=== PATIENT | female | born 1985 | race Caucasian/White ===

== ENCOUNTER → 2016-11-06 | Outpatient (CLI) | payer BC, SELFPAY ==
[2016-11-06 16:11] LABS: CHLORIDE,CL 108 mmol/L (98-110); SODIUM,NA 139 mmol/L (136-146)
--- NOTE | 2016-11-06 16:56 | CT ---
CT of the abdomen and pelvis without contrast. HISTORY: Fever TECHNIQUE: Axial CT images were obtained of the abdomen and pelvis without contrast. Coronal and sag ittal reconstructions obtained. FINDINGS: The lung bases are clear, no pleural effusion. The liver, spleen, adrenal glands, and pancreas appear unremarkable for noncontrast examination. Cho lelithiasis with possible mild wall thickening. There is no bulky retroperitoneal lymphadenopathy. N o abdominal ascites. Small nonobstructing renal stones noted bilaterally. There is no evidence of obstructive uropathy. The large and small bowel are normal in caliber without evidence of obstruction. The appendix appear s normal. There is no bulky pelvic lymphadenopathy. There is a trace free pelvic fluid. No free air. The urinary bladder appears normal. The visualized osseous structures appear normal. IMPRESSION: 1. Cholelithiasis with borderline gallbladder wall thickening. Correlate clinically. 2. Nonobstructing nephrolithiasis.
== END | disposition home or self-care (01) ==
LOC: MW.CHIM 14:47
PROVIDERS: ATTEND Internal Medicine
DX: R50.9 Fever, unspecified (principal); K80.20 Calculus of gallbladder without cholecystitis without obstruction; K82.8 Other specified diseases of gallbladder; N20.0 Calculus of kidney
CPT/HCPCS: 36415; 74176; 74176-26; 80053; 81001; 84550; 85025; 85652; 86140; 87040; 87086

== ENCOUNTER 2017-01-08 09:39 | Day surgery (SDC) | payer BC, SELFPAY ==
[~2017-01-08 09:39] MED LIST: Bupivacaine 0.25%/EPINEPHrine 1:200,000 10 ML SDV ONE; Clindamycin Phosphate in D5W 600 MG in Premix Bag 1 BAG IV ONE; Lactated Ringers 1,000 ML IV SCH; Octyl 2-Cyanoacrylate 1 Tube ONE; Propofol 200 MG/20 ML SDV ONE
[2017-01-08] MEDS ORDERED: Rocuronium 10 MG/ML 10 ML Syringe ONE (09:49)
[2017-01-08] MEDS ORDERED: Lidocaine 2% 5 ML SDV ONE (09:49)
[2017-01-08] MEDS ORDERED: Ondansetron 4 MG/2 ML SDV ONE (09:49)
[2017-01-08] MEDS ORDERED: Midazolam 1 MG/ML 2 ML SDV ONE (09:49)
[2017-01-08] MEDS ORDERED: fentaNYL 250 MCG/5 ML SDV ONE (09:50)
[2017-01-08] MEDS ORDERED: Clindamycin Phosphate in D5W 50 ML ONE (09:55)
--- NOTE | 2017-01-08 10:47 | PCM.PREANE ---
Preanesthetic Assessment - Anesthesia/Transfusion/Family Hx Anesthesia History: Prior Anesthesia Without Reaction Family History of Anesthesia Reaction: No Transfusion History: No Prior Transfusion(s) - Review of Systems General: No Symptoms Pulmonary: No Symptoms Cardiovascular: No Symptoms Gastrointestinal: No symptoms Neurological: No Symptoms Other: Reports: None - Physical Assessment NPO Status Date: 01/07/17 NPO Status Time: 23:30 O2 Sat by Pulse Oximetry: 97 Respiratory Rate: 16 Vital Signs: Last Vital Signs Temp 36.2 C 01/08/17 09:44 Pulse 78 01/08/17 09:44 Resp 16 01/08/17 09:44 BP 108/66 01/08/17 09:44 Pulse Ox 97 01/08/17 09:44 Height: 1.52 m Weight: 71.214 kg ASA Class: 2 Mental Status: Alert & Oriented x3 Airway Class: Mallampati = 2 Dentition: Reports: Normal Dentition ROM/Head Extension: Full Lungs: Clear to auscultation, Normal respiratory effort Cardiovascular: Regular Rate, Regular Rhythm - Lab Values: Laboratory Last Values Urine HCG, Qual NEGATIVE (NEGATIVE) 01/08/17 09:47 - Allergies Allergies/Adverse Reactions: Allergies Allergy/AdvReac Type Severity Reaction Status Date / Time amoxicillin [From Augmentin] Allergy Swelling Verified 01/06/17 14:30 cephalexin [From Keflex] Allergy Nausea and Verified 01/06/17 14:30 Vomiting clavulanic acid Allergy Swelling Verified 01/06/17 14:30 [From Augmentin] morphine Allergy Rash Verified 01/06/17 14:30 Penicillins Allergy Airway Verified 01/06/17 14:30 Tightness - Anesthesia Plan Pre-Op Medication Ordered: None - Acknowledgements Anesthesia Type Planned: General Anesthesia Pt an Appropriate Candidate for the Planned Anesthesia: Yes Alternatives and Risks of Anesthesia Discussed w Pt/Guardian: Yes Pt/Guardian Understands and Agrees with Anesthesia Plan: Yes Additional Comments: non smker x 18 months, also narcolepsy/sleepiness resolven and not an active problem. PreAnesthesia Questionnaire HEENT History: Reports: Otitis Media Cardiovascular History: Reports: None Respiratory History: Reports: Asthma Other Respiratory History: uses inhaler abour 1x per week Gastrointestinal History: Reports: None Genitourinary History: Reports: Renal Calculus Other Genitourinary History: Chronic recurrent kidney stones FOUNTAIN DISPENSER History: Reports: Other OB/BYN History: 4. months ago Musculoskeletal History: Reports: None Neurological History: Reports: None Psychiatric History: Reports: None Endocrine/Metabolic History: Reports: Other (See Below) Other Endocrine/Metabolic History: hypoglycemia Hematologic History: Reports: None Immunologic History: Reports: None Oncologic (Cancer) History: Reports: None Dermatologic History: Reports: None - Past Surgical History Head Surgeries/Procedures: Reports: None HEENT Surgical History: Reports: Myringotomy w Tube(s) Cardiovascular Surgical History: Reports: None Respiratory Surgical History: Reports: None GI Surgical History: Reports: None Female Surgical History: Reports: None Endocrine Surgical History: Reports: None Neurological Surgical History: Reports: None Musculoskeletal Surgical History: Reports: None Oncologic Surgical History: Reports: None Dermatological Surgical History: Reports: None - SUBSTANCE USE Smoking Status *Q: Former Smoker Tobacco Use Within Last Twelve Months: No Recreational Drug Use History: No - HOME MEDS Home Medications: Home Meds Albuterol Sulfate [Proair Hfa] 2 puff INH TID PRN 01/06/17 [History] PNV95/Ferrous Fumarate/FA [ Tablet] 1 tab PO DAILY 01/06/17 [History] - CURRENT (IN HOUSE) MEDS Current Meds: Current Medications Lactated Ringer's (Ringers, Lactated) 1,000 mls @ 125 mls/hr IV ASDIRECTED [facility] Last Admin: 01/08/17 10:05 Dose: 125 mls/hr Discontinued Medications Bupivacaine HCl/Epinephrine Bitart (Marcaine 0.25%/Epinephrine 1:200,000) Confirm Administered Dose 30 ml .ROUTE .STK-MED ONE Stop: 01/08/17 09:14 Fentanyl (Sublimaze) Confirm Administered Dose 250 mcg .ROUTE .STK-MED ONE Stop: 01/08/17 09:51 Clindamycin Phosphate 600 mg/ (Premix) 50 mls @ 100 mls/hr IV ONETIME ONE Stop: 01/08/17 05:29 Last Admin: 01/08/17 10:09 Dose: 100 mls/hr Clindamycin Phosphate (Cleocin In D5w) Confirm Administered Dose 50 mls @ as directed .ROUTE .STK-MED ONE Stop: 01/08/17 09:56 Last Admin: 01/08/17 10:13 Dose: Not Given Lidocaine (Xylocaine-Mpf 2%) Confirm Administered Dose 5 ml .ROUTE .STK-MED ONE Stop: 01/08/17 09:50 Midazolam HCl (Versed 1 Mg/Ml) Confirm Administered Dose 2 mg .ROUTE .STK-MED ONE Stop: 01/08/17 09:50 Octyl Cyanoacrylate (Dermabond Advance) Confirm Administered Dose 1 applic .ROUTE .[employer]-MED ONE Stop: 01/08/17 09:14 Ondansetron HCl (Zofran) Confirm Administered Dose 4 mg .ROUTE .STK-MED ONE Stop: 01/08/17 09:50 Propofol (Diprivan 20 Ml) Confirm Administered Dose 200 mg .ROUTE .STK-MED ONE Stop: 01/08/17 07:52 Rocuronium [place] (Zemuron) Confirm Administered Dose 100 mg .ROUTE .STK-MED ONE Stop: 01/08/17 09:50
[2017-01-08] MEDS ORDERED: Scopolamine 1.5 MG Transdermal Patch ONE (10:51)
[2017-01-08] MEDS ORDERED: diphenhydrAMINE 50 MG/ML SDV ONE (11:05)
[2017-01-08] MEDS ORDERED: Dexamethasone 4 MG/ML 5 ML MDV ONE (11:05)
[2017-01-08] MEDS ORDERED: Phenylephrine/Normal Saline 100 MCG/ML 10 ML Syringe ONE (11:06)
[2017-01-08] MEDS ORDERED: HYDROmorphone 2 MG/ML Syringe ONE (11:17)
[2017-01-08] MEDS ORDERED: fentaNYL 100 MCG/2 ML SDV ONE (12:11)
[2017-01-08] MEDS ORDERED: Neostigmine Methylsulfate 1 MG/ML 5 ML Syringe ONE (12:11)
--- NOTE | 2017-01-08 12:28 | PCM.OPNOTE ---
- General Post-Op/Procedure Note Date of Surgery/Procedure: 01/08/17 Operative Procedure(s): lap gene Findings: gb yellow and green, wall is not thickened; cw chronic and acute cholecystitis; [id number] Anesthesia Technique: General ET tube Primary Surgeon: Geronimo Mendoza Pathology: sent Complications: None Condition: Good
[2017-01-08] MEDS ORDERED: Acetaminophen/oxyCODONE 325-10 MG Tab PO PRN (12:34)
[2017-01-08] MEDS: fentaNYL 100 MCG/2 ML SDV IVPUSH PRN ×2 (12:44→12:51)
--- NOTE | 2017-01-08 13:06 | PCM.POSTAN ---
POST ANESTHESIA ASSESSMENT - MENTAL STATUS Mental Status: alert, oriented - RESPIRATORY Respiratory Status: respiratory rate WNL, airway patent, O2 saturation stable - CARDIOVASCULAR CV Status: pulse rate WNL, blood pressure stable - GASTROINTESTINAL GI Status: no symptoms - PAIN Pain Score: 5 - POST OP HYDRATION Hydration Status: adequate & stable
--- NOTE | 2017-01-08 14:36 | PCM48HPAN ---
Post Anesthesia Note - EVALUATION WITHIN 48HRS OF ANESTHETIC Vital Signs in Normal Range: Yes Patient Participated in Evaluation: Yes Respiratory Function Stable: Yes Airway Patent: Yes Cardiovascular Function Stable: Yes Hydration Status Stable: Yes Pain Control Satisfactory: Yes Nausea and Vomiting Control Satisfactory: Yes Mental Status Recovered: Yes
[2017-01-08 16:00] VITALS: BP 104/58
--- NOTE | 2017-01-08 18:11 | OR ---
SURGEON: Geronimo Mendoza MD DATE OF PROCEDURE: 01/08/2017 PREOPERATIVE DIAGNOSIS: Chronic and acute cholecystitis. POSTOPERATIVE DIAGNOSIS: Chronic and acute cholecystitis. PROCEDURE PERFORMED: Laparoscopic cholecystectomy. COMPLICATIONS: None. FINDINGS: Gallbladder does not have a thickened wall, but a large amount of gallstones and attached to surrounding organ consistent with chronic and acute cholecystitis. The gallbladder is already yellow and green consistent with chronic. DESCRIPTION OF PROCEDURE: The patient was taken to the operating room and placed in the supine position. After the intubation of general endotracheal anesthesia, the patient's abdomen was prepped and draped in the usual sterile fashion. Using [employer], a 12 mm trocar was placed supraumbilically and then followed with pneumoperitoneum. A 5 mm trocar was placed in the epigastrium and two 5 mm trocars placed in the right upper quadrant. The placement of the last three trocars was done under direct video supervision. Upon gaining entrance to the abdominal cavity, an extensive examination was then performed. The gallbladder was located and identified and retracted to the dome of the liver at the triangle of Calot. The cystic duct was clipped three more times and then using the endoscopic clip, was transected with placement of the endoscopic clip and transection was performed with care, ensuring the posterior prong of the instruments were clearly visualized prior to exercising the procedure. The gallbladder was dissected using electrocautery out of the liver bed and then removed using endoscopic bag through the umbilical site. The gallbladder was removed en bloc and there was no bile spillage and this was then followed with extensive irrigation until the bile was clear from blood and bile. The trocars were then removed under direct video supervision. The 12 mm umbilical site was then closed with deep stitches using 0 Vicryl followed with proximal stitches using 3-0 Vicryl and Dermabond. The other three trocar sites were closed with 3-0 Vicryl followed with approximation of skin with Dermabond. The patient was then awakened and extubated and transferred to the recovery room in hemodynamically stable condition. At the conclusion of the surgery, before closing the abdominal wound, instrument count and sponge count were done and were correct. The patient tolerated the procedure well and there were no intraoperative complications. Dr. Mendoza was present through the whole procedure. Just before surgery, a timeout was called. The patient was identified and procedure identified and procedure started. TERE / BAYRON /[id number]
--- NOTE | 2017-01-15 02:03 | OR ---
SURGEON: Geronimo Mendoza MD DATE OF PROCEDURE: 01/08/2017 ADDENDUM: DESCRIPTION OF THE PROCEDURE: After the gallbladder was removed, regular sized Surgicel was used to help in the hemostasis. TERE / BAYRON /[id number]
== END 2017-01-08 15:53 | disposition home or self-care (01) ==
LOC: MW.SDS 09:39
PROVIDERS: ATTEND Surgery
DX: K80.10 Calculus of gallbladder with chronic cholecystitis without obstruction (principal); F41.9 Anxiety disorder, unspecified; J45.20 Mild intermittent asthma, uncomplicated; Z88.0 Allergy status to penicillin; Z88.1 Allergy status to other antibiotic agents; Z88.8 Allergy status to other drugs, medicaments and biological substances; Z79.899 Other long term (current) drug therapy; Z98.890 Other specified postprocedural states; F17.200 Nicotine dependence, unspecified, uncomplicated; Z78.9 Other specified health status
CPT/HCPCS: 47562; 81025; A9270; J1100; J1170; J1200; J2250; J2405; J3010; J7120; 00790; 88304; J2704

== ENCOUNTER 2017-10-14 11:55 | Emergency (ER) | payer BC ==
[2017-10-14] MEDS ORDERED: Sodium Chloride 0.9% 1,000 ML IV ONE (12:09)
[2017-10-14] MEDS ORDERED: Ketorolac 30 MG/ML SDV IVPUSH ONE (12:09)
[2017-10-14] MEDS ORDERED: Ondansetron 4 MG/2 ML SDV IVPUSH ONE (12:14)
--- NOTE | 2017-10-14 12:30 | EDM.PDOC ---
ED HPI GENERAL MEDICAL PROBLEM - General Chief Complaint: Abdominal Pain Stated Complaint: ABDOMINAL PAIN Time Seen by Provider: 10/14/17 12:18 Source of Information: Reports: Patient History Limitations: Reports: No Limitations - History of Present Illness INITIAL COMMENTS - FREE TEXT/NARRATIVE: HISTORY AND PHYSICAL: History of present illness: Patient is a 32-year-old female who presents to the emergency room with complaints of left-sided abdominal pain 3 days. She states that she has had loose stools which have been increasingly problemsome over the last 2 days. Over the past 24 hours left-sided abdominal pain has come worse. She has intermittent nausea without vomiting. States she has the sensation of needing to void but feels like she is unable to start her stream. She has had kidney stones in the past but states this pain feels different. Sure of her last menstrual period as she is 15 months - recently finished breast-feeding. Review of systems: As per history of present illness and below otherwise all systems reviewed and negative. Past medical history: As per history of present illness and as reviewed below otherwise noncontributory. Surgical history: As per history of present illness and as reviewed below otherwise noncontributory. Social history: No reported history of drug or alcohol abuse. Family history: As per history of present illness and as reviewed below otherwise noncontributory. Physical exam: General: Well-developed and well-nourished 32-year-old female. Alert and oriented. Appears nontoxic and in no acute distress. HEENT: Atraumatic, normocephalic, pupils equal and reactive bilaterally, negative for conjunctival pallor or scleral icterus, mucous membranes moist, throat clear, neck supple, nontender, trachea midline. No drooling or trismus noted. No meningeal signs Lungs: Clear to auscultation, breath sounds equal bilaterally, chest nontender. Heart: S1S2, regular rate and rhythm without overt murmur Abdomen: Soft, nondistended, left upper quadrant and left lower quadrant tenderness. Negative for masses or hepatosplenomegaly. Negative for costovertebral tenderness. Pelvis: Stable nontender. Genitourinary: Deferred. Rectal: Deferred. Skin: Intact, warm, dry. No lesions or rashes noted. Extremities: Atraumatic, negative for cords or calf pain. Neurovascular unremarkable. Neuro: Awake, alert, oriented. Cranial nerves II through XII unremarkable. Cerebellum unremarkable. Motor and sensory unremarkable throughout. Exam nonfocal. Notes: Nursing staff performed bladder scanner; 16ml noted post void. She voided a small amount of urine; approx 10ml. CT scan will be ordered. Lab work is within normal limits. The urinalysis indicates that there may be a kidney stone. Patient received IV Toradol for pain management. This did help alleviate discomfort but pain has returned. She has a reported allergy to morphine but has taken Dilaudid without any problems. We'll give her 0.5 mg of Dilaudid IV. Awaiting the CT abdomen and pelvis report. CT shows a 3 x 5 mm distracting stone at the left UVJ with mild hydronephrosis. Nonobstructing nephrolithiasis bilaterally. Dr Nolasco, [facility] Urologist, was contacted about this patient. I did share her labs and CT report with her. She states that this patient is able to pass the stone as an outpatient. And she can follow up with her and approximately 2 weeks if needed. We'll give the patient a prescription for Flomax, Zofran and [place]. Education on straining her urine was completed. She voices understanding and is agreeable to plan of care. She denies any further questions at this time. Diagnostics: CBC, CMP, UA, urine , CT abdomen and pelvis Therapeutics: IV fluid, Zofran, Toradol, Dilaudid Urine strainer with education Impression: Abdominal pain Kidney Stone, left Plan: 1. Please take your Flomax 1 tab daily. Zofran has been prescribed for nausea, he may take 1 tab every 8 hours as needed. [place] has been prescribed for pain management. This medication is a narcotic seeking do not take it while driving or needing to be functioning outside of the house. This medication does also contain Tylenol (Acetaminophen); so do not take more than 4,000mg in 24 hours. May use Ibuprofen as needed. 2. Please increase your fluids. Strain your urine. 3. Dr Nolasco, Urologist at [facility], is aware of you and willing to see you in 2 weeks or sooner if needed. ). If symptoms should worsen, new symptoms develop, or you develop a fever please return to the emergency room. Otherwise return to the ED as needed and as discussed. Definitive disposition and diagnosis as appropriate pending reevaluation and review of above. LLQ Pain Score (Numeric/FACES): 10 - Related Data Allergies Allergy/AdvReac Type Severity Reaction Status Date / Time amoxicillin [From Augmentin] Allergy Swelling Verified 10/14/17 12:04 cephalexin [From Keflex] Allergy Nausea and Verified 10/14/17 12:04 Vomiting clavulanic acid Allergy Swelling Verified 10/14/17 12:04 [From Augmentin] morphine Allergy Swollen Verified 10/14/17 12:04 Eyes Penicillins Allergy Airway Verified 10/14/17 12:04 Tightness Home Meds: Home Meds Albuterol Sulfate [Proair Hfa] 2 puff INH TID PRN 01/06/17 [History] Lisdexamfetamine [Vyvanse] 50 mg PO DAILY 10/14/17 [History] Past Medical History HEENT History: Reports: Otitis Media Cardiovascular History: Reports: None Respiratory History: Reports: Asthma Other Respiratory History: uses inhaler abour 1x per week Gastrointestinal History: Reports: None Genitourinary History: Reports: Renal Calculus Other Genitourinary History: Chronic recurrent kidney stones GIZZARD PEELER History: Reports: Other OB/BYN History: 4. months ago Musculoskeletal History: Reports: None Neurological History: Reports: None Psychiatric History: Reports: None Endocrine/Metabolic History: Reports: Other (See Below) Other Endocrine/Metabolic History: hypoglycemia Hematologic History: Reports: None Immunologic History: Reports: None Oncologic (Cancer) History: Reports: None Dermatologic History: Reports: None - Infectious Disease History Infectious Disease History: Reports: Chicken Pox - Past Surgical History Head Surgeries/Procedures: Reports: None HEENT Surgical History: Reports: Myringotomy w Tube(s) Cardiovascular Surgical History: Reports: None Respiratory Surgical History: Reports: None GI Surgical History: Reports: None Female Surgical History: Reports: None Endocrine Surgical History: Reports: None Neurological Surgical History: Reports: None Musculoskeletal Surgical History: Reports: None Oncologic Surgical History: Reports: None Dermatological Surgical History: Reports: None Social & Family History - Family History Family Medical History: Noncontributory Neurological: Reports: MS Oncologic: Reports: Breast, Skin - Tobacco Use Smoking Status *Q: Never Smoker Second Hand Smoke Exposure: No - Caffeine Use Caffeine Use: Reports: Soda - Recreational Drug Use Recreational Drug Use: No Drug Use in Last 12 Months: No ED ROS GENERAL - Review of Systems Review Of Systems: ROS reveals no pertinent complaints other than HPI. ED EXAM, GI/ABD - Physical Exam Exam: See Below (See dictation) Course - Vital Signs Last Recorded V/S: Last Vital Signs Temp 98.3 F 10/14/17 14:44 Pulse 84 10/14/17 14:44 Resp 16 10/14/17 14:44 BP 111/60 10/14/17 14:44 Pulse Ox 99 10/14/17 14:44 - Orders/Labs/Meds Orders: Active Orders 24 hr Category Date Time Status UA W/MICROSCOPIC [URIN] Stat Lab 10/14/17 12:50 Ordered Labs: Laboratory Tests 10/14/17 10/14/17 10/14/17 Range/Units 12:14 12:14 12:14 WBC 4.96 (4.0-11.0) K/uL RBC 4.66 (4.30-5.90) M/uL Hgb 13.7 (12.0-16.0) g/dL Hct 39.7 (36.0-46.0) % MCV 85.2 (80.0-98.0) fL MCH 29.4 (27.0-32.0) pg MCHC 34.5 (31.0-37.0) g/dL RDW Std Deviation 41.3 (28.0-62.0) fl RDW Coeff of Lamar 13 (11.0-15.0) % Plt Count 287 (150-400) K/uL MPV 9.70 (7.40-12.00) fL Neut % (Auto) 67.4 (48.0-80.0) % Lymph % (Auto) 24.6 (16.0-40.0) % [place] % (Auto) 5.4 (0.0-15.0) % Eos % (Auto) 2.2 (0.0-7.0) % Baso % (Auto) 0.4 (0.0-1.5) % Neut # (Auto) 3.3 (1.4-5.7) K/uL Lymph # (Auto) 1.2 (0.6-2.4) K/uL [place]ay # (Auto) 0.3 (0.0-0.8) K/uL Eos # (Auto) 0.1 (0.0-0.7) K/uL Baso # (Auto) 0.0 (0.0-0.1) K/uL Nucleated RBC % 0.0 /100WBC Nucleated RBCs # 0 K/uL Sodium 143 (136-145) mmol/L Potassium 4.1 (3.5-5.1) mmol/L Chloride 106 (98-107) mmol/L Carbon Dioxide 26.5 (21.0-32.0) mmol/L BUN 10 (7.0-18.0) mg/dL Creatinine 0.6 (0.6-1.0) mg/dL Est Cr Clr Drug Dosing 108.43 mL/min Estimated GFR (MDRD) > 60.0 ml/min Glucose 83 (74-106) mg/dL Calcium 9.1 (8.5-10.1) mg/dL Total Bilirubin 0.4 (0.2-1.0) mg/dL AST 19 (15-37) IU/L ALT 20 (14-63) IU/L Alkaline Phosphatase 93 (46-116) U/L Total Protein 6.9 (6.4-8.2) g/dL Albumin 4.1 (3.4-5.0) g/dL Globulin 2.8 (2.0-3.5) g/dL Albumin/Globulin Ratio 1.5 (1.3-2.8) HCG, Qual NEGATIVE (NEG) Urine Color Urine Appearance Urine pH (5.0-8.0) Ur Specific [place] (1.001-1.035) Urine Protein (NEGATIVE) mg/dL Urine Glucose (UA) (NEGATIVE) mg/dL Urine Ketones (NEGATIVE) mg/dL Urine Occult Blood (NEGATIVE) Urine Nitrite (NEGATIVE) Urine Bilirubin (NEGATIVE) Urine Ictotest Urine Urobilinogen (<2.0) EU/dL Ur Leukocyte Esterase (NEGATIVE) Urine RBC (0-2/HPF) Urine WBC (0-5/HPF) Ur Epithelial Cells (NONE-FEW) Urine Bacteria (NEGATIVE) Urine Mucus (NONE-MOD) Urinalysis Comment 10/14/17 Range/Units 12:50 WBC (4.0-11.0) K/uL RBC (4.30-5.90) M/uL Hgb (12.0-16.0) g/dL Hct (36.0-46.0) % MCV (80.0-98.0) fL MCH (27.0-32.0) pg MCHC (31.0-37.0) g/dL RDW Std Deviation (28.0-62.0) fl RDW Coeff of Lamar (11.0-15.0) % Plt Count (150-400) K/uL MPV (7.40-12.00) fL Neut % (Auto) (48.0-80.0) % Lymph % (Auto) (16.0-40.0) % [place] % (Auto) (0.0-15.0) % Eos % (Auto) (0.0-7.0) % Baso % (Auto) (0.0-1.5) % Neut # (Auto) (1.4-5.7) K/uL Lymph # (Auto) (0.6-2.4) K/uL [place] # (Auto) (0.0-0.8) K/uL Eos # (Auto) (0.0-0.7) K/uL Baso # (Auto) (0.0-0.1) K/uL Nucleated RBC % /100WBC Nucleated RBCs # K/uL Sodium (136-145) mmol/L Potassium (3.5-5.1) mmol/L Chloride (98-107) mmol/L Carbon Dioxide (21.0-32.0) mmol/L BUN (7.0-18.0) mg/dL Creatinine (0.6-1.0) mg/dL Est Cr Clr Drug Dosing mL/min Estimated GFR (MDRD) ml/min Glucose (74-106) mg/dL Calcium (8.5-10.1) mg/dL Total Bilirubin (0.2-1.0) mg/dL AST (15-37) IU/L ALT (14-63) IU/L Alkaline Phosphatase (46-116) U/L Total Protein (6.4-8.2) g/dL Albumin (3.4-5.0) g/dL Globulin (2.0-3.5) g/dL Albumin/Globulin Ratio (1.3-2.8) HCG, Qual (NEG) Urine Color YELLOW Urine Appearance CLOUDY Urine pH 8.0 (5.0-8.0) Ur Specific [place] 1.015 (1.001-1.035) Urine Protein 30 (NEGATIVE) mg/dL Urine Glucose (UA) NEGATIVE (NEGATIVE) mg/dL Urine Ketones >=80 (NEGATIVE) mg/dL Urine Occult Blood LARGE H (NEGATIVE) Urine Nitrite NEGATIVE (NEGATIVE) Urine Bilirubin SMALL H (NEGATIVE) Urine Ictotest NEGATIVE Urine Urobilinogen 0.2 (<2.0) EU/dL Ur Leukocyte Esterase NEGATIVE (NEGATIVE) Urine RBC TOO NUMBEROUS TO CT H (0-2/HPF) Urine WBC 0-3 (0-5/HPF) Ur Epithelial Cells FEW (NONE-FEW) Urine Bacteria FEW (NEGATIVE) Urine Mucus MODERATE (NONE-MOD) Urinalysis Comment Meds: Medications Discontinued Medications Generic Name Dose Route Start Last Admin Trade Name Freq PRN Reason Stop Dose Admin Hydromorphone HCl 0.5 mg 10/14/17 14:16 10/14/17 14:23 Dilaudid IVPUSH 10/14/17 14:17 0.5 mg ONETIME ONE Administration Sodium Chloride 1,000 mls @ 999 mls/hr 10/14/17 12:09 10/14/17 12:29 Normal Saline IV 10/14/17 13:09 999 mls/hr .Bolus ONE Administration Ketorolac Tromethamine 30 mg 10/14/17 12:09 10/14/17 12:30 Toradol IVPUSH 10/14/17 12:10 30 mg ONETIME ONE Administration Ondansetron HCl 4 mg 10/14/17 12:14 10/14/17 12:32 Zofran IVPUSH 10/14/17 12:15 4 mg ONETIME ONE Administration Tamsulosin HCl 0.4 mg 10/14/17 14:38 10/14/17 14:43 Flomax PO 10/14/17 14:39 0.4 mg ONETIME ONE Administration Departure - Departure Time of Disposition: 14:46 Disposition: Home, Self-Care 01 Clinical Impression: Kidney stone on left side - Discharge Information Instructions: Kidney Stones, [id number] Referrals: PCP,None [Primary Care Provider] - Forms: ED Department Discharge Additional Instructions: The following information is given to patients seen in the emergency department who are being discharged to home. This information is to outline your options for follow-up care. We provide all patients seen in our emergency department with a follow-up referral. The need for follow-up, as well as the timing and circumstances, are variable depending upon the specifics of your emergency department visit. If you don't have a primary care physician on staff, we will provide you with a referral. We always advise you to contact your personal physician following an emergency department visit to inform them of the circumstance of the visit and for follow-up with them and/or the need for any referrals to a consulting specialist. The emergency department will also refer you to a specialist when appropriate. This referral assures that you have the opportunity for follow-up care with a specialist. All of these measure are taken in an effort to provide you with optimal care, which includes your follow-up. Under all circumstances we always encourage you to contact your private physician who remains a resource for coordinating your care. When calling for follow-up care, please make the office aware that this follow-up is from your recent emergency room visit. If for any reason you are refused follow-up, please contact the [facility] Emergency Department at and asked to speak to the emergency department charge nurse. [facility] [address] [place] [address] Dr. Nolasco Urology in [facility] [phone] 1. Please take your Flomax 1 tab daily. Zofran has been prescribed for nausea, he may take 1 tab every 8 hours as needed. [place] has been prescribed for pain management. This medication is a narcotic seeking do not take it while driving or needing to be functioning outside of the house. This medication does also contain Tylenol (Acetaminophen); so do not take more than 4,000mg in 24 hours. May use Ibuprofen as needed. 2. Please increase your fluids. Strain your urine. 3. Dr Nolasco, Urologist at [facility] in [place], is aware of you and willing to see you in 2 weeks or sooner if needed. ). If symptoms should worsen, new symptoms develop, or you develop a fever please return to the emergency room. Otherwise return to the ED as needed and as discussed. - My Orders Last 24 Hours: My Active Orders 10/14/17 12:50 UA W/MICROSCOPIC [URIN] Stat - Assessment/Plan Last 24 Hours: My Active Orders 10/14/17 12:50 UA W/MICROSCOPIC [URIN] Stat
[2017-10-14 13:00] LABS: CHLORIDE,CL 106 mmol/L (98-107); SODIUM,NA 143 mmol/L (136-145)
[2017-10-14] MEDS ORDERED: HYDROmorphone 1 MG/ML Syringe IVPUSH ONE (14:16)
--- NOTE | 2017-10-14 14:30 | CT ---
EXAMINATION: CT abdomen and pelvis with contrast HISTORY: Pain COMPARISON: 11/06/2016 TECHNIQUE: Axial CT images obtained through the abdomen following the administration of 100 mL of Iso liv-370 left antecubital fossa. Coronal and sagittal reconstructions obtained. FINDINGS: The lung bases are clear, no pleural effusion. The liver demonstrates a few tiny hypodensities, likely representing cysts. The spleen, adrenal gland s, and pancreas appear normal. Cholecystectomy clips are noted. No bulky retroperitoneal lymphadenopa thy or abdominal ascites. The kidneys enhance and function symmetrically. There is mild left-sided hydronephrosis with an obstr ucting stone at the left ureterovesicular junction measuring 5 x 3 mm. Bilateral nonobstructing nephr olithiasis also noted. The large and small bowel are normal in caliber without evidence of obstruction. No focal pericolonic inflammation or stranding. The tip of the appendix is mildly prominent measuring 8 mm, however appea rs similar to the previous examination. The urinary bladder is normal. The uterus and ovaries are nor mal. No pelvic lymphadenopathy or free pelvic fluid. No suspicious osseous abnormalities. IMPRESSION: 1. There is a 5 x 3 mm obstructing stone at the left ureterovesicular junction with mild proximal hy dronephrosis. 2. Nonobstructing nephrolithiasis bilaterally. 3. The tip of the appendix is prominent however not significantly changed from the prior examination.
[2017-10-14] MEDS ORDERED: Tamsulosin 0.4 MG Cap.ER PO ONE (14:38)
[2017-10-14 14:45] VITALS: BP 111/60
[2017-10-14] MEDS ORDERED: Iopamidol 755 MG/ML 200 ML Multipack Bottle IVPUSH STA (14:56)
== END 2017-10-14 15:03 | disposition home or self-care (01) ==
LOC: MW.ED 11:55
DX: N20.2 Calculus of kidney with calculus of ureter (principal); Z88.0 Allergy status to penicillin; Z88.1 Allergy status to other antibiotic agents; Z79.899 Other long term (current) drug therapy; Z88.5 Allergy status to narcotic agent
CPT/HCPCS: 36415; 74177; 80053; 81001; 84703; 85025; 96361; 96374; 96375; 99284; A9270; J1170; J1885; J2405; J7040; Q9967

== ENCOUNTER 2020-03-21 01:13 | Emergency (ER) | payer SELFPAY ==
[2020-03-21 01:26] VITALS: BP 143/89; PULSE 111
[2020-03-21] MEDS ORDERED: guaiFENesin 600 MG Tab.ER PO ONE (01:37)
--- NOTE | 2020-03-21 01:41 | EDM.PDOC ---
ED HPI GENERAL MEDICAL PROBLEM - General Chief Complaint: General Stated Complaint: BUG BITE- LEFT EAR, LEFT SIDE OF FACE TINGLING NOW Time Seen by Provider: 03/21/20 01:14 - History of Present Illness INITIAL COMMENTS - FREE TEXT/NARRATIVE: 34-year-old female with a history of ADHD on Vyvanse who is presenting with facial burning and numbness. The patient reports that earlier this morning she developed a painful fullness in her left ear that spread across her face was followed by an associated numbness. It is associated with eye burning as well as nasal burning the symptoms have now spread across to the right midface and into the right ear though she notes the right side is not as bad. No cough no sore throat no neck pain or stiffness no weakness in her arms or legs or other parts of her body. Symptoms are constant slowly progressive her facial pain worsens when bending forward no alleviating factors or other associated symptoms. Bilateral Ear Pain Score (Numeric/FACES): 6 - Related Data Allergies Allergy/AdvReac Type Severity Reaction Status Date / Time amoxicillin [From Augmentin] Allergy Swelling Verified 03/21/20 01:25 cephalexin [From Keflex] Allergy Nausea and Verified 03/21/20 01:25 Vomiting clavulanic acid Allergy Swelling Verified 03/21/20 01:25 [From Augmentin] morphine Allergy Swollen Verified 03/21/20 01:25 Eyes Penicillins Allergy Airway Verified 03/21/20 01:25 Tightness Home Meds: Home Meds Albuterol Sulfate [Proair Hfa] 2 puff INH TID PRN 01/06/17 [History] Lisdexamfetamine [Vyvanse] 50 mg PO DAILY 10/14/17 [History] Past Medical History HEENT History: Reports: Otitis Media Cardiovascular History: Reports: None Respiratory History: Reports: Asthma Other Respiratory History: uses inhaler abour 1x per week Gastrointestinal History: Reports: None Genitourinary History: Reports: Renal Calculus Other Genitourinary History: Chronic recurrent kidney stones 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 Musculoskeletal History: Reports: None Neurological History: Reports: None Psychiatric History: Reports: None Endocrine/Metabolic History: Reports: Other (See Below) Other Endocrine/Metabolic History: hypoglycemia Hematologic History: Reports: None Immunologic History: Reports: None Oncologic (Cancer) History: Reports: None Dermatologic History: Reports: None - Infectious Disease History Infectious Disease History: Reports: None - Past Surgical History Head Surgeries/Procedures: Reports: None HEENT Surgical History: Reports: Myringotomy w Tube(s) Cardiovascular Surgical History: Reports: None Respiratory Surgical History: Reports: None GI Surgical History: Reports: None Female Surgical History: Reports: None Endocrine Surgical History: Reports: None Neurological Surgical History: Reports: None Musculoskeletal Surgical History: Reports: None Oncologic Surgical History: Reports: None Dermatological Surgical History: Reports: None Social & Family History - Family History Family Medical History: Noncontributory Neurological: Reports: [place] Oncologic: Reports: Breast, Skin - Tobacco Use Smoking Status *Q: Never Smoker Second Hand Smoke Exposure: No - Caffeine Use Caffeine Use: Reports: None - Recreational Drug Use Recreational Drug Use: No ED ROS GENERAL - Review of Systems Review Of Systems: See Below Free Text/Narrative/Comment: General: No fever. Skin: No rash. Eyes: No vision problems. ENT: Per HPI Neck: No neck stiffness. Respiratory: No shortness of breath. Cardiac: No chest pain. Gastrointestinal: No nausea, vomiting or abdominal pain. Urinary: No dysuria. Musculoskeletal: No myalgias/arthralgias. Neurologic: Per HPI ED EXAM, GENERAL - Physical Exam Exam: See Below Free Text/Narrative:: General Appearance: No acute distress, appears comfortable Skin: No rash HEENT: Normocephalic/atraumatic, sclera anicteric, mucous membranes moist, no oral pharyngeal erythema, bilateral serous TM effusions with fullness on the left, tenderness to percussion in the frontal and maxillary sinuses left worse than right Neck: Normal range of motion Chest and Lungs: Bilateral breath sounds, clear to auscultation Cardiovascular: Regular rate and rhythm, no murmur Abdomen: Soft, non-tender Back: Normal Musculoskeletal: No edema or tenderness Neurologic: Awake, alert, no obvious deficits, moving all extremities, diminished sensation left forehead and over the left maxillary sinus but normal over the left jaw, otherwise cranial nerves III through XI intact bilaterally, normal facial movement no facial droop Psychiatric: Appropriate, cooperative Course - Vital Signs Last Recorded V/S: Last Vital Signs Temp 97.3 F 03/21/20 01:25 Pulse 111 H 03/21/20 01:25 Resp 18 03/21/20 01:25 BP 143/89 H 03/21/20 01:25 Pulse Ox 98 03/21/20 01:25 - Orders/Labs/Meds Meds: Medications Discontinued Medications Generic Name Dose Route Start Last Admin Trade Name Chema PRN Reason Stop Dose Admin Guaifenesin 1,200 mg 03/21/20 01:37 03/21/20 01:48 Mucinex PO 03/21/20 01:38 1,200 mg ONETIME ONE Administration Departure - Departure Time of Disposition: 01:38 Disposition: Home, Self-Care 01 Condition: Good Clinical Impression: Sinusitis - Discharge Information *PRESCRIPTION DRUG MONITORING PROGRAM REVIEWED*: Not Applicable *COPY OF PRESCRIPTION DRUG MONITORING REPORT IN PATIENT MYRA: Not Applicable Instructions: Sinusitis, Adult, [id number] Referrals: Yoselin Chase MD [Primary Care Provider] - Forms: ED Department Discharge Additional Instructions: I encourage you to start taking Mucinex to help thin the mucus in your sinuses and behind your ear drums. Do NOT take the Mucinex with the decongestant in it as it can interact with your Vyvanse. I also recommend using a NettiPot, or similar device that you can get from your local pharmacy. Please follow-up with your primary doctors office in a few days to make sure that things are improving. If you start to notice trouble moving your face, trouble drinking through a straw or that your face seems not to look right in the mirror, or if you develop any other new symptoms that concern you, then please return to the ER. The following information is given to patients seen in the emergency department who are being discharged to home. This information is to outline your options for follow-up care. We provide all patients seen in our emergency department with a follow-up referral. The need for follow-up, as well as the timing and circumstances, are variable depending upon the specifics of your emergency department visit. If you don't have a primary care physician on staff, we will provide you with a referral. We always advise you to contact your personal physician following an emergency department visit to inform them of the circumstance of the visit and for follow-up with them and/or the need for any referrals to a consulting specialist. The emergency department will also refer you to a specialist when appropriate. This referral assures that you have the opportunity for follow-up care with a specialist. All of these measure are taken in an effort to provide you with optimal care, which includes your follow-up. Under all circumstances we always encourage you to contact your private physician who remains a resource for coordinating your care. When calling for follow-up care, please make the office aware that this follow-up is from your recent emergency room visit. If for any reason you are refused follow-up, please contact the [facility] Emergency Department at and asked to speak to the emergency department charge nurse. Sepsis Event Note (ED) - Evaluation Sepsis Screening Result: No Definite Risk - Focused Exam Vital Signs: Vital Signs Temp Pulse Resp BP Pulse Ox 03/21/20 01:25 97.3 F 111 H 18 143/89 H 98 - Assessment/Plan Plan: 34-year-old female presenting with signs and symptoms seem most consistent with a developing a viral sinusitis. No otitis media or otitis externa no findings of deep space infection in the neck no trismus sublingual or submental swelling uvular deviation etc. The patient does report diminished sensation over the frontal and maxillary sinus but no findings over the lower part of the face and no facial muscular weakness that would suggest Finney's palsy patient also have symptoms progressing over to the right side no clinical concern for stroke patient has no history of diabetes no reason to suspect malignant sinusitis. Strict return precautions discussed and understood patient will start Mucinex instructed to avoid Mucinex D stimulant she takes recommended Saritha pot usage and close primary care follow-up. No findings of meningitis or encephalitis no findings of allergic reaction such as rash or swelling or erythema no findings of cellulitis
== END 2020-03-21 01:50 | disposition home or self-care (01) ==
LOC: MW.ED 01:13
DX: J32.9 Chronic sinusitis, unspecified (principal); J45.909 Unspecified asthma, uncomplicated; Z88.1 Allergy status to other antibiotic agents; Z88.5 Allergy status to narcotic agent; Z88.0 Allergy status to penicillin
CPT/HCPCS: 99283; A9270; 99282

== ENCOUNTER 2020-03-23 16:22 | Emergency (ER) | payer SELFPAY ==
[2020-03-23] MEDS ORDERED: Sodium Chloride 0.9% 2.5 ML Syringe FLUSH PRN (16:59)
[2020-03-23] MEDS ORDERED: Sodium Chloride 0.9% 1,000 ML IV ONE ×2 (16:59→18:41)
[2020-03-23] MEDS ORDERED: Sodium Chloride 0.9% 10 ML Syringe FLUSH PRN (16:59)
--- NOTE | 2020-03-23 17:04 | EDM.PDOC ---
<Peyton Mae - Last Filed: 03/23/20 19:24> ED HPI GENERAL MEDICAL PROBLEM - General Chief Complaint: Neuro Symptoms/Deficits Stated Complaint: TWITCHING/NUMBNESS LEFT SIDE OF FACE Time Seen by Provider: 03/23/20 16:50 Source of Information: Reports: Patient - History of Present Illness INITIAL COMMENTS - FREE TEXT/NARRATIVE: History of present illness: 34-year-old female presenting with facial twitching and earache. Apparently it started about a week ago is left-sided ear pain and developed some left facial twitching, she was apparently seen here 2 days ago and diagnosed with sinus infection but was not put on antibiotics yet but was recommended Mucinex. Today she is starting to have right-sided earache and right-sided facial twitching as well. She does report that she has some difficulty smiling due to the but twitching. She takes Vyvanse daily and she has been taking this on the same days as the Mucinex, however has been taking Vyvanse for years and twitching predated the Mucinex/Vyvanse combo. Has not had any fevers or chills. She has not had any cough or difficulty breathing. No neck stiffness. She does report that she feels some feeling of movement, like a bug crawling over the left side of her face and in her ear, she felt that she may have been bitten in the ear by a bug. She also does report that she has been feeling some intermittent burning type sensations over the skin of her cheek and forehead. No recent travel. No seizure history. No tick exposure or recalled tick bite. Review of systems: As per history of present illness and below otherwise all systems reviewed and negative. Past medical history: As per history of present illness and as reviewed below otherwise noncontributory. ADD no Surgical history: As per history of present illness and as reviewed below otherwise noncontributory. Social history: No reported history of drug or alcohol abuse. Family history: As per history of present illness and as reviewed below otherwise noncontributory. Physical exam: GEN: no acute distress, well appearing HEENT: Atraumatic, normocephalic, mucous membranes moist, she does have some mild facial twitching when she smiles, primarily in the cheeks and eyes. No limitation of EOM. Eyes and face appear normal. There is no rash. She is able to smile normally with symmetric raise of the lips without difficulty. No decreased sensation over the face. Neck: supple, nontender, trachea midline. Lungs: No respiratory distress. Heart: RRR Abdomen: Soft, nondistended, nontender. Back: nontender Extremities: Atraumatic. Neurovascularly intact. Neuro: Awake, alert, oriented. Neuro Exam nonfocal. As above the patient has some mild twitching of the face but normal smile, no facial droop, no limited lip lift or drift, no decreased sensation, normal event and strength of all 4 extremities and no sensory deficit of the extremities. There is no twitching of the lower extremity or upper extremities. No ataxia. Skin: warm, dry, no lesions Diagnostics: Labs, CT, EKG Therapeutics: IV fluids, Zofran, phosphorus, ativan MDM: Impression: [] Plan: [] Definitive disposition and diagnosis as appropriate pending reevaluation and review of above. Head Pain Score (Numeric/FACES): 7 - Related Data Allergies Allergy/AdvReac Type Severity Reaction Status Date / Time amoxicillin [From Augmentin] Allergy Swelling Verified 03/21/20 01:25 cephalexin [From Keflex] Allergy Nausea and Verified 03/21/20 01:25 Vomiting clavulanic acid Allergy Swelling Verified 03/21/20 01:25 [From Augmentin] morphine Allergy Swollen Verified 03/21/20 01:25 Eyes Penicillins Allergy Airway Verified 03/21/20 01:25 Tightness Home Meds: Home Meds Albuterol Sulfate [Proair Hfa] 2 puff INH TID PRN 01/06/17 [History] Lisdexamfetamine [Vyvanse] 50 mg PO DAILY 10/14/17 [History] Past Medical History HEENT History: Reports: Otitis Media Cardiovascular History: Reports: None Respiratory History: Reports: Asthma Other Respiratory History: uses inhaler abour 1x per week Gastrointestinal History: Reports: None Genitourinary History: Reports: Renal Calculus Other Genitourinary History: Chronic recurrent kidney stones 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 Musculoskeletal History: Reports: None Neurological History: Reports: None Psychiatric History: Reports: ADD Endocrine/Metabolic History: Reports: Other (See Below) Other Endocrine/Metabolic History: hypoglycemia Hematologic History: Reports: None Immunologic History: Reports: None Oncologic (Cancer) History: Reports: None Dermatologic History: Reports: None - Infectious Disease History Infectious Disease History: Reports: Chicken Pox - Past Surgical History Head Surgeries/Procedures: Reports: None HEENT Surgical History: Reports: Myringotomy w Tube(s) Cardiovascular Surgical History: Reports: None Respiratory Surgical History: Reports: None GI Surgical History: Reports: None Female Surgical History: Reports: None Endocrine Surgical History: Reports: None Neurological Surgical History: Reports: None Musculoskeletal Surgical History: Reports: None Oncologic Surgical History: Reports: None Dermatological Surgical History: Reports: None Social & Family History - Family History Family Medical History: Noncontributory Neurological: Reports: [place] Oncologic: Reports: Breast, Skin - Caffeine Use Caffeine Use: Reports: None ED ROS GENERAL - Review of Systems Review Of Systems: See Below (See HPI) ED EXAM, NEURO - Physical Exam Exam: See Below (See HPI) EKG INTERPRETATION EKG Interpretation Comments: EKG performed today at 4:48 PM, sinus rhythm, rate 98, borderline short LA interval, right atrial enlargement, QTC 439, no acute ischemia, no STEMI. Interpreted by me. *Q Meaningful Use (ADM) - Stroke *Q Stroke Criteria *Q: N/A Course - Vital Signs Text/Narrative:: Bilateral facial twitching. No etiology found here today. Slightly low phosphorus. Will be repleted. Also given IV fluids. - Re-Assessments/Exams Free Text/Narrative Re-Assessment/Exam: 03/23/20 19:04 I reassessed the patient. She is in no acute distress. However, she is still tachycardic and now reports that she feels nauseated. She also appears anxious. Discussed all results with the patient and plan for follow-up with neurology outpatient. She agrees with this plan. 03/23/20 19:10 Patient signed out to Hui Guajardo NP pending heart rate reassessment after IV fluids, phosphorus repletion and small dose of Ativan. Departure - Departure Disposition: Home, Self-Care 01 Clinical Impression: Facial twitching - Discharge Information Instructions: Muscle Cramps and Spasms, [id number] Referrals: Vero Myles NP [Primary Care Provider] - Forms: ED Department Discharge Additional Instructions: The following information is given to patients seen in the emergency department who are being discharged to home. This information is to outline your options for follow-up care. We provide all patients seen in our emergency department with a follow-up referral. The need for follow-up, as well as the timing and circumstances, are variable depending upon the specifics of your emergency department visit. If you don't have a primary care physician on staff, we will provide you with a referral. We always advise you to contact your personal physician following an emergency department visit to inform them of the circumstance of the visit and for follow-up with them and/or the need for any referrals to a consulting specialist. The emergency department will also refer you to a specialist when appropriate. This referral assures that you have the opportunity for follow-up care with a specialist. All of these measure are taken in an effort to provide you with optimal care, which includes your follow-up. Under all circumstances we always encourage you to contact your private physician who remains a resource for coordinating your care. When calling for follow-up care, please make the office aware that this follow-up is from your recent emergency room visit. If for any reason you are refused follow-up, please contact the [facility] Emergency Department at and asked to speak to the emergency department charge nurse. [facility] [address] [place] [address] [place] [address] Thank you for choosing the [facility] emergency department in [place] for your medical needs today. It was a pleasure caring for you. Today you were seen in the emergency department for facial twitching. 1. Please use Tylenol and/or Ibuprofen as needed for pain and fever management. 2. Get plenty of Rest. Encourage fluids to prevent dehydration. 3. Please follow up with Dr Sullivan, neurologist, call her office on Thursday to set up a follow-up appointment. Referral has been made from the emergency department. Return to the ED as needed as discussed. Sepsis Event Note (ED) - Evaluation Sepsis Screening Result: No Definite Risk <Hui Guajardo E - Last Filed: 03/24/20 14:09> ED HPI GENERAL MEDICAL PROBLEM - History of Present Illness INITIAL COMMENTS - FREE TEXT/NARRATIVE: Dr Mae ask that I re-evaluate the patient after her IV fluids and Ativan, as she is pending discharge. Patients VSS. Neurologically intact without deficets. NIH 0. GCS 15. Patient is to follow-up with Dr. Trujillo, neurology. We reviewed signs and symptoms that would prompt her to return to the emergency room. Patient voices understanding denies any further questions or concerns at this time. Course - Vital Signs Last Recorded V/S: Last Vital Signs Temp 97.3 F 03/23/20 20:08 Pulse 82 03/23/20 20:08 Resp 18 03/23/20 20:08 BP 118/75 03/23/20 20:08 Pulse Ox 97 03/23/20 20:08 - Orders/Labs/Meds Orders: Active Orders 24 hr Category Date Time Status Saline Lock Insert [OM.PC] Stat Oth 03/23/20 16:59 Ordered Labs: Laboratory Tests 03/23/20 03/23/20 03/23/20 Range/Units 17:22 17:22 17:22 WBC 7.08 (4.0-11.0) K/uL RBC 4.49 (4.30-5.90) M/uL Hgb 13.5 (12.0-16.0) g/dL Hct 40.8 (36.0-46.0) % MCV 90.9 (80.0-98.0) fL MCH 30.1 (27.0-32.0) pg MCHC 33.1 (31.0-37.0) g/dL RDW Std Deviation 42.5 (28.0-62.0) fl RDW Coeff of Lamar 13 (11.0-15.0) % Plt Count 270 (150-400) K/uL MPV 10.50 (7.40-12.00) fL Neut % (Auto) 70.5 (48.0-80.0) % Lymph % (Auto) 22.2 (16.0-40.0) % Lipscomb % (Auto) 5.6 (0.0-15.0) % Eos % (Auto) 1.4 (0.0-7.0) % Baso % (Auto) 0.3 (0.0-1.5) % Neut # (Auto) 5.0 (1.4-5.7) K/uL Lymph # (Auto) 1.6 (0.6-2.4) K/uL Lipscomb # (Auto) 0.4 (0.0-0.8) K/uL Eos # (Auto) 0.1 (0.0-0.7) K/uL Baso # (Auto) 0.0 (0.0-0.1) K/uL Nucleated RBC % 0.0 /100WBC Nucleated RBCs # 0 K/uL Sodium 140 (136-145) mmol/L Potassium 4.1 (3.5-5.1) mmol/L Chloride 106 (98-107) mmol/L Carbon Dioxide 24.3 (21.0-32.0) mmol/L BUN 10 (7.0-18.0) mg/dL Creatinine 0.7 (0.6-1.0) mg/dL Est Cr Clr Drug Dosing 91.25 mL/min Estimated GFR (MDRD) > 60.0 ml/min Glucose 98 (74-106) mg/dL Calcium 8.9 (8.5-10.1) mg/dL Phosphorus 2.1 L (2.6-4.7) mg/dL Magnesium 1.9 (1.8-2.4) mg/dL Total Bilirubin 0.2 (0.2-1.0) mg/dL AST 15 (15-37) IU/L ALT 19 (14-63) IU/L Alkaline Phosphatase 51 (46-116) U/L Total Protein 6.7 (6.4-8.2) g/dL Albumin 4.1 (3.4-5.0) g/dL Globulin 2.6 (2.6-4.0) g/dL Albumin/Globulin Ratio 1.6 (0.9-1.6) TSH 3rd Generation 0.95 (0.36-3.74) uIU/mL HCG, Qual NEGATIVE (NEG) Meds: Medications Discontinued Medications Generic Name Dose Route Start Last Admin Trade Name Freq PRN Reason Stop Dose Admin Sodium Chloride 1,000 mls @ 999 mls/hr 03/23/20 16:59 03/23/20 17:13 Normal Saline IV 03/23/20 17:59 999 mls/hr .Bolus ONE Administration Sodium Chloride 1,000 mls @ 999 mls/hr 03/23/20 18:41 03/23/20 19:05 Normal Saline IV 03/23/20 19:41 999 mls/hr .Bolus ONE Administration Lorazepam 0.5 mg 03/23/20 19:11 03/23/20 19:34 Ativan IVPUSH 03/23/20 19:12 0.5 mg ONETIME ONE Administration Ondansetron HCl 4 mg 03/23/20 19:11 03/23/20 19:33 Zofran IVPUSH 03/23/20 19:12 4 mg ONETIME ONE Administration Sodium Chloride 10 ml 03/23/20 16:59 03/23/20 17:14 Saline Flush FLUSH 10 ml ASDIRECTED PRN Administration Keep Vein Open Sodium Chloride 2.5 ml 03/23/20 16:59 03/23/20 17:14 Saline Flush FLUSH 2.5 ml ASDIRECTED PRN Administration Keep Vein Open Sodium Phosphate 250 mg 03/23/20 19:11 03/23/20 19:41 Neutra-Phos PO 03/23/20 19:12 250 mg ONETIME ONE Administration Departure - Departure Time of Disposition: 20:09
[2020-03-23 18:20] LABS: BLOOD UREA NITROGEN,BUN 10 mg/dL (7.0-18.0); CARBON DIOXIDE,CO2 24.3 mmol/L (21.0-32.0); CHLORIDE,CL 106 mmol/L (98-107); GLUCOSE RANDOM 98 mg/dL (74-106); POTASSIUM,K 4.1 mmol/L (3.5-5.1); SODIUM,NA 140 mmol/L (136-145)
--- NOTE | 2020-03-23 18:55 | CT ---
Head CT Technique: Multiple axial sections through the brain were obtained. Intravenous contrast was not utilized. Comparison: No prior intracranial imaging is available. Findings: Ventricles along with basal cisterns and sulci are the convexities are within normal limits for the patient's age. No abnormal parenchymal densities are seen. No evidence of intracranial hemorrhage. No midline shift or mass effect is seen. Bone window settings were reviewed. Visualized mastoid sinuses and paranasal sinuses show nothing acute. No acute calvarial finding is appreciated. Impression: 1. Nothing acute is appreciated on noncontrast head CT exam. Diagnostic code #1 Study was dictated in MDT
[2020-03-23] MEDS ORDERED: Phosphorus #1 250 MG Tab PO ONE (19:11)
[2020-03-23] MEDS ORDERED: LORazepam 2 MG/ML SDV IVPUSH ONE (19:11)
[2020-03-23] MEDS ORDERED: Ondansetron 4 MG/2 ML SDV IVPUSH ONE (19:11)
[2020-03-23 20:08] VITALS: BP 118/75; PULSE 82
== END 2020-03-23 20:20 | disposition home or self-care (01) ==
LOC: MW.ED 16:22
DX: R25.3 Fasciculation (principal); F98.8 Other specified behavioral and emotional disorders with onset usually occurring in childhood and adolescence; J45.909 Unspecified asthma, uncomplicated; H92.01 Otalgia, right ear; Z88.1 Allergy status to other antibiotic agents; Z88.5 Allergy status to narcotic agent; Z88.0 Allergy status to penicillin; Z79.899 Other long term (current) drug therapy
CPT/HCPCS: 36415; 70450; 80053; 83735; 84100; 84443; 84703; 85025; 93005; 96361; 96374; 96375; 99284; A9270; J2060; J2405; J7030

== ENCOUNTER 2020-05-23 22:48 | Emergency (ER) | payer SELFPAY ==
[2020-05-23] MEDS ORDERED: ALPRAZolam 0.25 MG Tab PO ONE (23:56)
[2020-05-24 01:45] LABS: BLOOD UREA NITROGEN,BUN 8 mg/dL (7.0-18.0); CARBON DIOXIDE,CO2 28.3 mmol/L (21.0-32.0); CHLORIDE,CL 105 mmol/L (98-107); GLUCOSE RANDOM 74 mg/dL (74-106); POTASSIUM,K 3.9 mmol/L (3.5-5.1); SODIUM,NA 139 mmol/L (136-145)
--- NOTE | 2020-05-24 01:55 | EDM.PDOC ---
ED HPI GENERAL MEDICAL PROBLEM - General Chief Complaint: General Stated Complaint: SICK Time Seen by Provider: 05/23/20 23:28 - History of Present Illness INITIAL COMMENTS - FREE TEXT/NARRATIVE: CHIEF COMPLAINT(S): Multiple complaint HISTORY OF PRESENT ILLNESS: This is a 34-year-old woman with a past medical history of nephrolithiasis and prior history of sinusitis and facial twitching who comes to the emergency department with a chief complaint of multiple complaints. The patient states that for approximately 1 to 2 months now she has been experiencing facial twitching located throughout her face, frontal headache not associated with any trouble walking, trouble speaking or trouble swallowing. She states that she has started to get some mild blurry vision and feels like things are floating in her eyes. She denies any photophobia, nausea, or vomiting. She states that the headache is achy rated 4 out of 10 not associated with any neck pain or dizziness. She denies any diplopia or loss of vision. She denies any aggravating or relieving symptoms. She has not yet tried any medications. In addition to this she states that her "my spine is burning and feels like her body is vibrating." She states that she also feels like her skin is elastic and that she has moles on her skin but if she puts her arm down she feels like things are crawling on her eyes. I have she states that she does have sick contacts and her daughter and dad have been experiencing fatigue and stomach pains for few days. She is also concerned because her dog is sick and has a hereditary parasite. She denies any history of schizophrenia, depression, anxiety, auditory elucidation or visual hallucination. She denies any suicidal ideation or suicidal attempt. She denies any other symptoms. REVIEW OF SYSTEMS: Constitutional: Denies fever, chills. Eyes: Positive for seeing floaters in eyes and blurry vision. Denies diplopia, eye pain. Ears, Nose, Mouth, & Throat: Positive for sore throat. Denies earache Cardiovascular: Denies chest pain Respiratory: Denies shortness of breath Gastrointestinal: Denies Nausea, vomiting, diarrhea, hematochezia. Genitourinary: Denies hematuria Skin:Denies a rash Neurological: Positive for blurred vision and headache. Denies diplopia, numbness, tingling, weakness, trouble walking, trouble speaking, trouble swallowing Psychiatric: Denies depression, auditory hallucination, visual hallucination, suicidal ideation, suicidal attempt PAST MEDICAL HISTORY: As per history of present illness and as reviewed below otherwise noncontributory. SURGICAL HISTORY: As per history of present illness and as reviewed below otherwise noncontributory. LMP: Has an IUD. SOCIAL HISTORY: As per history of present illness and as reviewed below otherwise noncontributory. FAMILY HISTORY: As per history of present illness and as reviewed below otherwise noncontributory. EXAMINATION OF ORGAN SYSTEMS/BODY AREAS: Constitutional: Blood pressure was 130/80, heart rate 94, respiratory rate 18 with an oxygen saturation 99% on room air. Temperature 37.1 General: Overall well-appearing woman who is in no acute distress Psychiatric: Appropriate mood and mildly odd affect. Does not appear to be responding to internal stimuli. Eyes: No scleral icterus or conjunctival erythema pupils were 3 mm and reactive bilaterally. Extraocular movements were intact. No a parent pupillary defect. Visual acuity was 20/25 in both eyes with corrective lenses. On funduscopic examination there is does not appear to be any papilledema, engorgement of veins or any abnormality. There is no hyphema. There is some mild scleral redness however with no drainage. Visual nichols were intact. ENMT: Moist mucous membranes. No pharyngeal erythema bilateral nasal turbinates clear without any erythema or drainage. Bilateral tympanic membranes clear without any bulging or erythema. There is no sinus tenderness on palpation. There was no vertical or horizontal nystagmus. Cardiovascular: Regular, rate, and rythym. No gallops, murmurs, or rubs. Bilateral upper extremity pulses symmetric and intact. No peripheral edema. No JVD. Respiratory: Lungs clear to auscultation bilaterally. No wheezes, rales, or rhonchi. Gastrointestinal: Soft, non-tender, non-distended. Normoactive bowel sounds Genitourinary: No suprapubic tenderness Musculoskeletal: Normal range of motion. No neck pain or stiffness. Skin: No lesions or abrasions. Neurological: Alert and oriented x4, GCS of 15. Strength and sensation intact in upper and lower extremities bilaterally. Facies is symmetrical, uvula was midline, tongue protrudes midline. Gait was normal. MEDICAL DECISION MAKING AND COURSE IN THE ED WITH INTERPRETATION/REVIEW OF DIAGNOSTIC STUDIES: This is a 34-year-old woman with a past medical history of prior history of facial twitching and nephrolithiasis who comes to the emergency department with multiple complaints with the most concerning being blurry vision and floating in her eyes. On examination of her eyes they all appear to be normal with good visual acuity no visual field defects. I did perform a bedside ocular ultrasound to evaluate for retinal detachment or vitreous hemorrhage with findings consistent without any evidence of either of these. There is no papilledema on funduscopic examination. At this time it is uncertain as to what is causing the patient's symptoms however we will provide the patient with 0.25 mg of Xanax and obtain basic labs to evaluate for any electrolyte abnormalities that may be causing the facial twitching. There was no evidence of [place] sign or any other abnormality on physical examination. We will reevaluate the patient. Laboratory: CBC is unremarkable. CMP is unremarkable. hCG is negative. After period of observation I did discuss with patient that at this time I do not know what is causing the patient's symptoms however I did encourage her to follow-up with her primary care doctor I discussed with her that I want her to follow-up with ophthalmology within 1 to 2 days. I did provide her with the contact information. She is to return for any new worsening symptoms such as vision loss, trouble walking, trouble speaking, trouble swallowing, fever. She did express understanding was amenable to discharge at this time. Given the duration of her symptoms I do not believe this represents an emergent condition however she is to return for any new or worsening symptoms. DISPOSITION: The patient was discharged home in stable condition. The patient will follow up with PCP and ophthalmology CONDITION: Fair PROCEDURES: Bedside ocular FINAL IMPRESSION(S)/DIAGNOSES: 1. Subacute blurry vision, unknown etiology 2. Subacute frontal headache 3. Subacute facial twitching 4. History of sinusitis Jens Talavera M.D. L shoulder and spine Pain Score (Numeric/FACES): 6 - Related Data Allergies Allergy/AdvReac Type Severity Reaction Status Date / Time amoxicillin [From Augmentin] Allergy Swelling Verified 05/23/20 23:08 cephalexin [From Keflex] Allergy Nausea and Verified 05/23/20 23:08 Vomiting clavulanic acid Allergy Swelling Verified 05/23/20 23:08 [From Augmentin] morphine Allergy Swollen Verified 05/23/20 23:08 Eyes Penicillins Allergy Airway Verified 05/23/20 23:08 Tightness Home Meds: Home Meds Albuterol Sulfate [Proair Hfa] 2 puff INH TID PRN 01/06/17 [History] Lisdexamfetamine [Vyvanse] 50 mg PO DAILY 10/14/17 [History] Past Medical History HEENT History: Reports: Otitis Media Cardiovascular History: Reports: None Respiratory History: Reports: Asthma Other Respiratory History: uses inhaler abour 1x per week Gastrointestinal History: Reports: None Genitourinary History: Reports: Renal Calculus Other Genitourinary History: Chronic recurrent kidney stones PERINATAL EDUCATOR History: Reports: Other PERINATAL EDUCATOR History: 4. months ago Musculoskeletal History: Reports: None Neurological History: Reports: None Psychiatric History: Reports: ADD Endocrine/Metabolic History: Reports: Other (See Below) Other Endocrine/Metabolic History: hypoglycemia Hematologic History: Reports: None Immunologic History: Reports: None Oncologic (Cancer) History: Reports: None Dermatologic History: Reports: None - Infectious Disease History Infectious Disease History: Reports: Chicken Pox - Past Surgical History Head Surgeries/Procedures: Reports: None HEENT Surgical History: Reports: Myringotomy w Tube(s) Cardiovascular Surgical History: Reports: None Respiratory Surgical History: Reports: None GI Surgical History: Reports: None Female Surgical History: Reports: None Endocrine Surgical History: Reports: None Neurological Surgical History: Reports: None Musculoskeletal Surgical History: Reports: None Oncologic Surgical History: Reports: None Dermatological Surgical History: Reports: None Social & Family History - Family History Family Medical History: Noncontributory Neurological: Reports: MS Oncologic: Reports: Breast, Skin - Caffeine Use Caffeine Use: Reports: None - Recreational Drug Use Recreational Drug Use: No ED ROS GENERAL - Review of Systems Review Of Systems: See Below ED EXAM, GENERAL - Physical Exam Exam: See Below Course - Vital Signs Last Recorded V/S: Last Vital Signs Temp 36.6 C 05/24/20 02:00 Pulse 70 05/24/20 02:00 Resp 18 05/24/20 02:00 BP 100/64 05/24/20 02:00 Pulse Ox 97 05/24/20 02:00 - Orders/Labs/Meds Labs: Laboratory Tests 05/23/20 05/24/20 05/24/20 Range/Units 23:57 00:51 00:51 WBC 7.79 (4.0-11.0) K/uL RBC 4.46 (4.30-5.90) M/uL Hgb 13.5 (12.0-16.0) g/dL Hct 41.0 (36.0-46.0) % MCV 91.9 (80.0-98.0) fL MCH 30.3 (27.0-32.0) pg MCHC 32.9 (31.0-37.0) g/dL RDW Std Deviation 45.3 (28.0-62.0) fl RDW Coeff of Lamar 14 (11.0-15.0) % Plt Count 277 (150-400) K/uL MPV 10.00 (7.40-12.00) fL Neut % (Auto) 61.7 (48.0-80.0) % Lymph % (Auto) 30.0 (16.0-40.0) % [place] % (Auto) 5.1 (0.0-15.0) % Eos % (Auto) 3.1 (0.0-7.0) % Baso % (Auto) 0.1 (0.0-1.5) % Neut # (Auto) 4.8 (1.4-5.7) K/uL Lymph # (Auto) 2.3 (0.6-2.4) K/uL [place] # (Auto) 0.4 (0.0-0.8) K/uL Eos # (Auto) 0.2 (0.0-0.7) K/uL Baso # (Auto) 0.0 (0.0-0.1) K/uL Nucleated RBC % 0.0 /100WBC Nucleated RBCs # 0 K/uL Sodium 139 (136-145) mmol/L Potassium 3.9 (3.5-5.1) mmol/L Chloride 105 (98-107) mmol/L Carbon Dioxide 28.3 (21.0-32.0) mmol/L BUN 8 (7.0-18.0) mg/dL Creatinine 0.8 (0.6-1.0) mg/dL Est Cr Clr Drug Dosing 79.85 mL/min Estimated GFR (MDRD) > 60.0 ml/min Glucose 74 (74-106) mg/dL Calcium 9.1 (8.5-10.1) mg/dL Magnesium 2.1 (1.8-2.4) mg/dL Total Bilirubin 0.2 (0.2-1.0) mg/dL AST 12 L (15-37) IU/L ALT 21 (14-63) IU/L Alkaline Phosphatase 54 (46-116) U/L Total Protein 6.9 (6.4-8.2) g/dL Albumin 4.1 (3.4-5.0) g/dL Globulin 2.8 (2.6-4.0) g/dL Albumin/Globulin Ratio 1.5 (0.9-1.6) TSH 3rd Generation 0.51 (0.36-3.74) uIU/mL Urine HCG, Qual NEGATIVE (NEGATIVE) Meds: Medications Discontinued Medications Generic Name Dose Route Start Last Admin Trade Name Freq PRN Reason Stop Dose Admin Alprazolam 0.25 mg 05/23/20 23:56 05/24/20 00:10 Xanax PO 05/23/20 23:57 0.25 mg ONETIME ONE Administration Departure - Departure Time of Disposition: 01:49 Disposition: Home, Self-Care 01 Condition: Fair Clinical Impression: Eye abnormality, Facial twitching, Eye twitch - Discharge Information *PRESCRIPTION DRUG MONITORING PROGRAM REVIEWED*: No *COPY OF PRESCRIPTION DRUG MONITORING REPORT IN PATIENT MYRA: No Instructions: Sinusitis, Adult, [id number] Referrals: Yoselin Chase MD [Primary Care Provider] - Hans Mcrae MD [Ordering Only Provider] - Forms: ED Department Discharge Additional Instructions: The patient is informed of any results of their evaluation and diagnostic workup and all questions are answered. They are given discharge instructions and return precautions. The patient is stable for discharge. The patient states they understand and agree with the plan and that they will return if their symptoms get worse or if they have any new concerns. The following information is given to patients seen in the emergency department who are being discharged to home. This information is to outline your options for follow-up care. We provide all patients seen in our emergency department with a follow-up referral. The need for follow-up, as well as the timing and circumstances, are variable depending upon the specifics of your emergency department visit. If you don't have a primary care physician on staff, we will provide you with a referral. We always advise you to contact your personal physician following an emergency department visit to inform them of the circumstance of the visit and for follow-up with them and/or the need for any referrals to a consulting specialist. The emergency department will also refer you to a specialist when appropriate. This referral assures that you have the opportunity for follow-up care with a specialist. All of these measure are taken in an effort to provide you with optimal care, which includes your follow-up. Under all circumstances we always encourage you to contact your private physician who remains a resource for coordinating your care. When calling for follow-up care, please make the office aware that this follow-up is from your recent emergency room visit. If for any reason you are refused follow-up, please contact the [facility] Emergency Department at and asked to speak to the emergency department charge nurse. You were evaluated today in the emergency department for multiple complaints. At this time your examination is normal and your laboratory work-up was normal. Your symptoms could be due to sinusitis therefore I recommend [id number] sinusitis decongestions and use of pain medications such as Tylenol or Motrin. In regards to facial twitching and eye floaters I recommend follow-up with your primary care doctor and supply chain buyer within 1 week. Please return to the emergency department for any new worsening symptoms such as loss of vision, trouble walking, trouble speaking, trouble swallowing, worsening headache. Sepsis Event Note (ED) - Evaluation Sepsis Screening Result: No Definite Risk - Focused Exam Vital Signs: Vital Signs Temp Pulse Resp BP Pulse Ox 05/24/20 02:00 36.6 C 70 18 100/64 97 05/23/20 23:09 37.1 C 94 18 130/80 99
[2020-05-24 02:07] VITALS: BP 100/64; PULSE 70
--- NOTE | 2020-05-24 04:44 | PCM.SN.2 ---
#1 Interpretation EKG Date: 05/23/20 Rhythm: NSR Rate (Beats/Min): 93 [place]: Normal P-Wave: Present QRS: Normal ST-T: Normal QT: Normal Comparison: No Change (from EKG 03/23/2020) EKG Interpretation Comments: NOrmal sinus rhythm
== END 2020-05-24 02:00 | disposition home or self-care (01) ==
LOC: MW.ED 22:48
DX: R25.3 Fasciculation (principal); J45.909 Unspecified asthma, uncomplicated; F98.8 Other specified behavioral and emotional disorders with onset usually occurring in childhood and adolescence; H53.8 Other visual disturbances; R51.9 Headache, unspecified; Z88.1 Allergy status to other antibiotic agents; Z88.5 Allergy status to narcotic agent; Z88.0 Allergy status to penicillin; Z79.899 Other long term (current) drug therapy; Z87.09 Personal history of other diseases of the respiratory system
CPT/HCPCS: 36415; 80053; 81025; 83735; 84443; 85025; 93005; 99284; A9270; 93010; 99283